=== PATIENT | female | born 1980 | race Caucasian/White ===

== ENCOUNTER → 2016-06-27 | Outpatient (CLI) | payer OTHER ==
[~2016-06-27] MED LIST: AMOX500C3 PO; HYDR-5688 PO; IBUP-1427 PO; OPTIRAY 320 IV PRN; OXYC-57 PO
--- NOTE | 2016-06-27 16:24 | DIAGNOSTIC IMAGING REPORT ---
CT HEAD COMBO CT DOSE: 1277.12 mGycm TECHNIQUE: Noncontrast images were obtained through the brain in the axial plane. The sequence was repeated following administration of 92 Optiray 320. HISTORY: HEADACHES COMPARISON: None. FINDINGS: No intra or extra-axial mass lesions are visualized. There is no CT evidence of acute cortical infarction. There is no evidence of midline shift. There is no acute hemorrhage. No calvarial fractures are visualized. There are small foci of decreased attenuation within the periventricular white matter. These foci are nonspecific, but given the patient's age likely represent the sequela of headaches, dilated perivascular spaces, or small demyelinating plaques. There is no evidence of pathologic ventricular dilatation. There is no evidence of acute sinusitis Postcontrast images reveal no pathologically enhancing masses. IMPRESSION: 1. No evidence of intracranial mass 2. No pathologically enhancing lesions 3. No evidence of hydrocephalus 4. No evidence of acute hemorrhage 5. There are 2 small foci of decreased attenuation within the periventricular deep white matter superior to the posterior aspects of the lateral ventricles bilaterally. These are nonspecific but given the patient's age likely represent the sequela of headaches, dilated perivascular spaces, or small demyelinating plaques Electronically signed by: Ovidio Alcantara M.D. 06/27/2016 4:22 PM Dictated Date/Time: 06/27/2016 4:19 PM
== END | disposition home or self-care (01) ==
LOC: MERGE 06-24 16:20 → C.CTS 16:03
PROVIDERS: ATTEND Family Medicine
DX: R51 Headache (principal); R93.0 Abnormal findings on diagnostic imaging of skull and head, not elsewhere classified